=== PATIENT | male | born 1960 | race Hispanic/Latino ===

== ENCOUNTER 2017-11-12 17:09 | Emergency (ER) | payer MEDICAID, MEDICARE ==
[2017-11-12 17:09] VITALS: BMI 21.7
--- NOTE | 2017-11-12 18:02 | CP.PCM.CON ---
History of Present Illness - History of Present Illness History of Present Illness: Surgery: Dr. Welch Reason for consult: thrombosed hemorrhoids CC: "cant reduce hemorrhoids" HPI: Patient is a 57 y/o male w/ pmhx of hemorrhoids presents complaining of nonreducible hemorrhoids since this am. He reports 2 episodes of diarrhea prior to prolapse. He complains of pain and pressure to the rectal area. He denies any other symptoms at this time. He reports his last colonoscopy was 2 years ago which showed hemorrhoids but otherwise normal. PMH: hemorrhoids, lung fungal mass stable PSH: chest tube placement, lung mass biopsy, hydrocelectomy as infant, elder of thrombosed hemorrhoids Social: + tobacco use Review of Systems - Review of Systems All systems: reviewed and no additional remarkable complaints except Review of Systems: unless stated in HPI Past Patient History - Past Medical History & Family History Past Medical History?: Yes - Past Social History Smoking Status: Current Some Days Smoker - PULMONARY Other/Comment: PNUEMOTHORAX WITH CHEST TUBE 1993 fungal mass lung stable [id number] - NEUROLOGICAL Hx Neurological Disorder: No - HEENT Hx HEENT Problems: Yes (seasonal allergies) - RENAL Hx Chronic Kidney Disease: No - ENDOCRINE/METABOLIC Hx Endocrine Disorders: No - HEMATOLOGICAL/ONCOLOGICAL Hx Blood Disorders: No - INTEGUMENTARY Hx Dermatological Problems: No - MUSCULOSKELETAL/RHEUMATOLOGICAL Hx Musculoskeletal Disorders: Yes Hx Osteoarthritis: Yes - GASTROINTESTINAL Hx Gastrointestinal Disorders: Yes Hx Gastroesophageal Reflux: Yes - GENITOURINARY/GYNECOLOGICAL Hx Genitourinary Disorders: Yes Other/Comment: Inguinal Hernia, Testicular Problem - PSYCHIATRIC Hx Psychophysiologic Disorder: No Hx Substance Use: No - SURGICAL HISTORY Hx Surgeries: Yes Hx Herniorrhaphy: Yes (bilat ing 3 days old) Other/Comment: lung bx x 2 varicocelectomy x2. Hemorrhoid removal - ANESTHESIA Hx Anesthesia: Yes Hx Anesthesia Reactions: No Hx Malignant Hyperthermia: No Meds Allergies/Adverse Reactions: Allergies Allergy/AdvReac Type Severity Reaction Status Date / Time No Known Allergies Allergy Verified 11/12/17 17:11 Physical Exam - Constitutional Appears: Non-toxic, No Acute Distress - Head Exam Head Exam: ATRAUMATIC, NORMOCEPHALIC - Eye Exam Eye Exam: EOMI, Normal appearance - ENT Exam ENT Exam: Mucous Membranes Moist - Respiratory Exam Respiratory Exam: NORMAL BREATHING PATTERN. absent: Respiratory Distress - Cardiovascular Exam Cardiovascular Exam: REGULAR RHYTHM. absent: Tachycardia - GI/Abdominal Exam GI & Abdominal Exam: Soft. absent: Distended, Tenderness - Rectal Exam Rectal Exam: Hemorrhoids. absent: Black Stool, Bloody Stool, Fecal Impaction Additional comments: grade 4 hemorrhoids, soft minimal continuous pressure applied and after 30-45 seconds hemorrhoids reduced sphincter tone intact - Neurological Exam Neurological exam: Alert, Oriented x3 - Psychiatric Exam Psychiatric exam: Normal Affect, Normal Mood - Skin Skin Exam: Dry, Warm Results - Vital Signs Recent Vital Signs: Last Vital Signs Temp 98.2 F 11/12/17 17:12 Pulse 100 H 11/12/17 17:12 Resp 18 11/12/17 17:12 BP 124/78 11/12/17 17:12 Pulse Ox 100 11/12/17 17:12 Assessment & Plan - Assessment and Plan (Free Text) Assessment: 57 y/o male w/ grade 4 hemorrhoids Plan: -reduced with manual continuous pressure -needs surgical f/u as outpatient -Call Dr. Welch office for appointment, may need hemorrhoidectomy in future -recommending hemorrhoid suppositories OTC -Sitz baths daily -Fiber diet, prevent diarrhea and constipation -d/w ER attending and Dr. Welch [facility] PGY3
--- NOTE | 2017-11-12 18:12 | C.PDOC ---
History Of Present Illness 57 year old male presents to the emergency department with complaints of rectal pain persisting for one day. Patient reports that hemorrhoids protruded after he had a soft bowel movement today, and that he was unable to manually reduce the hemorrhoids. Patient reports some bloody discharge from the area, but denies abdominal pain, nausea, and vomiting. Time Seen by Provider: 11/12/17 17:21 Chief Complaint (Nursing): Male Genitourinary History Per: Patient History/Exam Limitations: no limitations Onset/Duration Of Symptoms: Days (1) Current Symptoms Are (Timing): Still Present Quality Of Discomfort: "Pain" Associated Symptoms: Other (rectal pain and hemorrhoids). denies: Nausea, Vomiting, Diarrhea Past Medical History Reviewed: Historical Data, Nursing Documentation, Vital Signs Vital Signs: Last Vital Signs Temp 98 F 11/12/17 18:44 Pulse 86 11/12/17 18:44 Resp 16 11/12/17 18:44 BP 126/73 11/12/17 18:44 Pulse Ox 100 11/14/17 07:21 - Medical History PMH: COPD, Emphysema, HTN Denies: Chronic Kidney Disease Surgical History: Endoscopy - [facility] Procedures COLONOSCOPY (06/10/14) ESOPHAGOGASTRODUODENOSCOPY [EGD] W/CLOSED BIOPSY (09/02/14) Family History: States: No Known Family Hx - Social History Hx Alcohol Use: No Hx Substance Use: No - Immunization History Hx Tetanus Toxoid Vaccination: No Hx Influenza Vaccination: No Hx Pneumococcal Vaccination: No Review Of Systems Gastrointestinal: Positive for: Rectal Pain, Other (blood discharge from rectum) . Negative for: Nausea, Vomiting, Abdominal Pain, Diarrhea Physical Exam - Physical Exam Appears: Non-toxic, In Acute Distress, Other (lying prone due to pain) Skin: Warm, Dry, No Rash, Other (1cm x 3cm warm, tender mass to the right of the rectum. Two smaller masses located to medial to the bigger mass.) Head: Atraumatic, Normacephalic Eye(s): bilateral: Normal Inspection Nose: Normal Oral Mucosa: Moist Neck: Normal, Supple Chest: Symmetrical, No Tenderness Cardiovascular: Rhythm Regular, No Murmur Respiratory: Normal Breath Sounds, No Rales, No Rhonchi, No Wheezing Gastrointestinal/Abdominal: Normal Exam, Soft, No Tenderness Back: Normal Inspection Male Genital: Normal Inspection Extremity: Normal ROM Neurological/Psych: Oriented x3, Normal Speech, Normal Cognition ED Course And Treatment O2 Sat by Pulse Oximetry: 100 (RA) Pulse Ox Interpretation: Normal Progress Note: Plan: CMP. Lipase. CBC. PTT. Prothrombin Time. Toradol 30mg IVP. Urinalysis Medical Decision Making Medical Decision Making: pt with large tender ?thrombosed hemorrhoids; consult done by surgical services asst ; hemorrhoids reduced manually by resident and pt in greatly decreased pain, feels pressure. given toradol. feeling better. advised sitz bath, high fiber diet, f/u Dr Welch, no straining. no need for labwork at this time. Disposition Counseled Patient/Family Regarding: Diagnosis, Need For Followup, Rx Given - Disposition Referrals: Angel Welch MD [Staff Provider] - Disposition: HOME/ ROUTINE Disposition Time: 18:26 Condition: IMPROVED Additional Instructions: Please increase fiber in diet. Do sitz baths several times a day (warm water with epsom salts or baking soda). No straining with bowel movement. Follow up wiht Dr Welch, make soonest appointment. Return to ER for any worsening symptoms. Instructions: Hemorrhoids (DC) Forms: General Discharge Instructions, [facility] (Ukrainian) - Clinical Impression Clinical Impression: Hemorrhoids that prolapse with straining and require manual replacement back inside anal canal - PA / MAINTENANCE TEAM LEADER / Resident Statement / has reviewed & agrees with the documentation as recorded. - Scribe Statement The provider has reviewed the documentation as recorded by the Scribe All medical record entries made by the Scribe were at my direction and personally dictated by me. I have reviewed the chart and agree that the record accurately reflects my personal performance of the history, physical exam, medical decision making, and the department course for this patient. I have also personally directed, reviewed, and agree with the discharge instructions and disposition.
[2017-11-12 18:45] VITALS: BP 126/73; PULSE 86; RESP 16; TEMP 98
[2017-11-14 07:22] VITALS: O2SAT 100
== END 2017-11-12 18:45 | disposition home or self-care (01) ==
LOC: C.ER 17:09
DX: K64.8 Other hemorrhoids (principal)
CPT/HCPCS: 96374; 99284; J1885

== ENCOUNTER 2018-08-07 09:51 | Emergency (ER) | payer MEDICARE, OTHER ==
[2018-08-07 09:51] VITALS: BMI 21.7
[2018-08-07 09:57] VITALS: RESP 20
--- NOTE | 2018-08-07 10:25 | C.PDOC ---
History Of Present Illness The patient reports 2 day history of vomiting which is associated with melena which today became bright red vomiting. The patient reports history of similar symptoms in the past and was diagnosed with a bleeding ulcer over 10 years ago. Time Seen by Provider: 08/07/18 10:05 Chief Complaint (Nursing): GI Problem History Per: Patient History/Exam Limitations: no limitations Onset/Duration Of Symptoms: Days (2) Current Symptoms Are (Timing): Still Present Associated Symptoms: Vomiting Additional History Per: Patient Past Medical History Reviewed: Historical Data, Nursing Documentation, Vital Signs Vital Signs: Last Vital Signs Temp 98.3 F 08/07/18 09:57 Pulse 70 08/07/18 09:57 Resp 20 08/07/18 09:57 BP 114/66 08/07/18 09:57 Pulse Ox 98 08/07/18 09:57 - Medical History PMH: COPD, Emphysema, Hiatal Hernia, HTN Denies: Chronic Kidney Disease Surgical History: Endoscopy - [facility] Procedures COLONOSCOPY (06/10/14) ESOPHAGOGASTRODUODENOSCOPY [EGD] W/CLOSED BIOPSY (09/02/14) Family History: States: Unknown Family Hx - Social History Hx Alcohol Use: Yes Hx Substance Use: No - Immunization History Hx Tetanus Toxoid Vaccination: Yes Hx Influenza Vaccination: No Hx Pneumococcal Vaccination: No Review Of Systems Gastrointestinal: Positive for: Vomiting, Melena Physical Exam - Physical Exam Appears: Non-toxic, No Acute Distress Skin: Normal Color, Warm, Dry Head: Atraumatic, Normacephalic Eye(s): bilateral: Normal Inspection Oral Mucosa: Moist Neck: Supple Chest: Symmetrical, No Deformity, No Tenderness Cardiovascular: Rhythm Regular, No Murmur Respiratory: Normal Breath Sounds, No Rales, No Rhonchi, No Wheezing Gastrointestinal/Abdominal: Soft, Tenderness (mild to left upper quadrant, epig astric ), No Guarding, No Rebound Back: No CVA Tenderness Extremity: Normal ROM, Capillary Refill (less than 2 seconds ) Neurological/Psych: Oriented x3, Normal Speech, Normal Cognition ED Course And Treatment - Laboratory Results Result Diagrams: 08/07/18 10:37 08/07/18 10:37 O2 Sat by Pulse Oximetry: 98 (on RA ) Pulse Ox Interpretation: Normal - Other Rad CXR X-Ray: Viewed By Me, Read By Radiologist Interpretation: Chest x-ray single frontal view. HISTORY: Abdominal pain. Comparison: 01/26/2016. Findings: Biapical pleural thickening with upper lobe granulomatous changes. Mild venous congestion. Bilateral hilar prominence. Patchy increased markings at the lung bases. Mild nodular consolidation at the right costophrenic angle. Heart size within normal limits. Degenerative changes in the spine. Impression: Biapical pleural thickening with upper lobe granulomatous changes. Mild venous congestion. Bilateral hilar prominence. Patchy increased markings at the lung bases. Mild nodular consolidation at the right costophrenic angle. - CT Scan/US CT A/P Other Rad Studies (CT/US): Read By Radiologist, Radiology Report Reviewed CT/US Interpretation: Date of service: 08/07/2018. PROCEDURE: CT Abdomen and Pelvis with contrast. HISTORY: Epigastric abdominal pain, vomiting, GI bleeding. COMPARISON: None available. TECHNIQUE: Contrast dose: 100 mL Visipaque 320 IV. Radiation dose: Total exam DLP = 359.47 mGy-cm. This CT exam was performed using one or more of the following dose reduction techniques: Automated exposure control, adjustment of the mA and/or kV according to patient size, and/or use of iterative reconstruction technique. FINDINGS: LOWER THORAX: Bibasilar atelectasis. No visible pleural effusion or pneumothorax. LIVER: Hypoattenuation of the liver compatible with hepatic steatosis. G ALLBLADDER AND BILE DUCTS: Unremarkable. PANCREAS: Unremarkable. SPLEEN: Unremarkable. ADRENALS: Unremarkable. KIDNEYS AND URETERS: The kidneys enhance symmetrically. No hydronephrosis or obstructing calculus identified. VASCULATURE: No aortic aneurysm. Atherosclerotic calcifications of the aorta. BOWEL: Stomach is nondistended. Lack of oral contrast limits evaluation for bowel pathology. Bowel loops appear within normal limits of caliber without evidence of obstruction. APPENDIX: The appendix is not identified. No secondary signs of acute appendicitis appreciated. PERITONEUM: No significant free fluid. No definite free air. LYMPH NODES: No bulky adenopathy identified. BLADDER: Unremarkable. REPRODUCTIVE: Prostate gland appears borderline enlarged. BONES: Degenerative changes. OTHER FINDINGS: None. IMPRESSION: Diverticulosis without CT evidence of acute diverticulitis. Borderline enlarged prostate gland. Recommend correlation with PSA. Hypoattenuation of the liver compatible with hepatic steatosis. Bibasilar atelectasis. Additional findings as above. Against Medical Advice - AMA Patient Left Against Medical Advice: The patient declines admission to the hospital and wishes to leave the Emergency Department. This action is against my medical advice. This decision was made with informed refusal. The patient was told that admission to the hospital is necessary. Explanation of the reasons why were discussed. The risks of leaving were explained to the patient and include, but are not limited to, worsening of known or currently unknown conditions, permanent disability and from undiagnosed or untreated conditions. The patient has the capacity to make this informed decision and understands my explanation of the current medical problem and risks of leaving. The patient voluntarily accepts these risks and signed an AMA form documenting our conversation. The patient was given the opportunity to ask questions and reconsider. The patient was encouraged to return to the Emergency Department at any time for further care. Medical Decision Making Medical Decision Making: Progress: Bloodwork, CT A/P, CXR ordered and reviewed. Protonix IVP, Zofran IVP, Sandostatin IV, and IV Fluids given. Patient with tenderness during abdominal ecam, CT A/P ordered. Patient with no episodes of vomiting in the ED with no evidence of bleeding. Patient was advised to be admitted for monitoring and GI bleeding. Patient re fuses at this time. I explained the risks and benefits of his decision to the patient. He verbalizes understanding and is choosing to leave the ED against medical advice. Disposition - Disposition Referrals: Stephan Araiza MD [Staff Provider] - Rojelio Taylor MD [Non-Staff] - Lawrence Taylor MD [Medical Doctor] - Maico Roque MD [Staff Provider] - Disposition: AGAINST MEDICAL ADVICE Disposition Time: 12:55 Condition: STABLE Additional Instructions: FOLLOW UP WITH THE GI DOCTOR WITHIN 1-2 DAYS. RETURN SOON POSSIBLE IF SYMPTOMS RETURN Prescriptions: Pantoprazole [Protonix EC Tab] 20 mg PO DAILY #30 ect Instructions: Gastrointestinal Bleeding (DC) Forms: [facility] ([place]ican) - Clinical Impression Clinical Impression: Abdominal pain, Upper GI bleeding - Scribe Statement The provider has reviewed the documentation as recorded by the Scribe (Nimco Aguila) All medical record entries made by the Scribe were at my direction and pe rsonally dictated by me. I have reviewed the chart and agree that the record accurately reflects my personal performance of the history, physical exam, medical decision making, and the department course for this patient. I have also personally directed, reviewed, and agree with the discharge instructions and disposition.
[2018-08-07] MEDS ORDERED: Sodium Chloride 0.9% 1,000 ML IV ONE (10:30)
[2018-08-07] MEDS ORDERED: Octreotide 500 mcg/ml Inj IV STA (10:35)
[2018-08-07 10:44] LABS: BASO % 0.6 % (0.0-2.0); EOS # 0.1 K/uL (0.0-0.7); EOS % 1.9 % (0.0-4.0); HEMOGLOBIN 15.3 g/dL (12.0-18.0); LYMPH # 1.3 K/uL (1.0-4.3); LYMPH % 24.4 % (20.0-40.0); MEAN CELL VOLUME 93.8 fL (80.0-94.0); MEAN CORPUSCULAR HEMOGLOBIN 31.3 pg (27.0-31.0); MEAN CORPUSCULAR HGB CONC 33.4 g/dL (33.0-37.0); MEAN PLATELET VOLUME 8.8 fL (7.2-11.7); MONO # 0.4 K/uL (0.0-0.8); MONO % 7.4 % (0.0-10.0); NEUT # 3.4 K/uL (1.8-7.0); NEUT % 65.7 % (50.0-75.0); RBC 4.9 Mil/uL (4.40-5.90); RED CELL DISTRIBUTION WIDTH 13.6 % (11.5-14.5); WHITE BLOOD COUNT 5.2 K/uL (4.8-10.8)
[2018-08-07] MEDS ORDERED: Sodium Chloride 0.9% 1,000 ML ONE (10:44)
[2018-08-07 10:55] LABS: PROTHROMBIN TIME 10.8 SECONDS (9.7-12.2)
[2018-08-07 11:00] LABS: ALB/GLOB RATIO 1.7 (1.0-2.1); ALBUMIN 4.7 g/dL (3.5-5.0); ALT/SGPT 18 U/L (21-72); AST/SGOT 34 U/L (17-59); BLOOD UREA NITROGEN 17 mg/dL (9-20); CALCIUM 9.4 mg/dl (8.6-10.4); GFR NON-AFRICAN AMERICAN > 60; LIPASE 83 U/L (23-300)
[2018-08-07] MEDS ORDERED: Iodixanol 320 MG/ML 100 ML BOTTLE IV ONE (11:24)
--- NOTE | 2018-08-07 11:51 | RAD ---
Chest x-ray single frontal view HISTORY: Abdominal pain. Comparison: 01/26/2016 Findings: Biapical pleural thickening with upper lobe granulomatous changes. Mild venous congestion. Bilateral hilar prominence. Patchy increased markings at the lung bases. Mild nodular consolidation at the right costophrenic angle. Heart size within normal limits. Degenerative changes in the spine. Impression: Biapical pleural thickening with upper lobe granulomatous changes. Mild venous congestion. Bilateral hilar prominence. Patchy increased markings at the lung bases. Mild nodular consolidation at the right costophrenic angle.
--- NOTE | 2018-08-07 12:40 | CT ---
Date of service: 08/07/2018 PROCEDURE: CT Abdomen and Pelvis with contrast HISTORY: Epigastric abdominal pain, vomiting, GI bleeding COMPARISON: None available. TECHNIQUE: Contrast dose: 100 mL Visipaque 320 IV Radiation dose: Total exam DLP = 359.47 mGy-cm. This CT exam was performed using one or more of the following dose reduction techniques: Automated exposure control, adjustment of the mA and/or kV according to patient size, and/or use of iterative reconstruction technique. FINDINGS: LOWER THORAX: Bibasilar atelectasis. No visible pleural effusion or pneumothorax. LIVER: Hypoattenuation of the liver compatible with hepatic steatosis. GALLBLADDER AND BILE DUCTS: Unremarkable. PANCREAS: Unremarkable. SPLEEN: Unremarkable. ADRENALS: Unremarkable. KIDNEYS AND URETERS: The kidneys enhance symmetrically. No hydronephrosis or obstructing calculus identified. VASCULATURE: No aortic aneurysm. Atherosclerotic calcifications of the aorta. BOWEL: Stomach is nondistended. Lack of oral contrast limits evaluation for bowel pathology. Bowel loops appear within normal limits of caliber without evidence of obstruction. APPENDIX: The appendix is not identified. No secondary signs of acute appendicitis appreciated. PERITONEUM: No significant free fluid. No definite free air. LYMPH NODES: No bulky adenopathy identified. BLADDER: Unremarkable. REPRODUCTIVE: Prostate gland appears borderline enlarged. BONES: Degenerative changes. OTHER FINDINGS: None. IMPRESSION: Diverticulosis without CT evidence of acute diverticulitis. Borderline enlarged prostate gland. Recommend correlation with PSA. Hypoattenuation of the liver compatible with hepatic steatosis. Bibasilar atelectasis. Additional findings as above.
[2018-08-07 12:41] VITALS: BP 128/65; PULSE 50; TEMP 97.8
[2018-08-07 12:57] VITALS: O2SAT 98
== END 2018-08-07 13:17 | disposition left against medical advice (07) ==
LOC: C.ER 09:51
DX: R10.13 Epigastric pain (principal); K92.2 Gastrointestinal hemorrhage, unspecified; I10 Essential (primary) hypertension
CPT/HCPCS: 71045; 74177; 80053; 83690; 85025; 85610; 85730; 96361; 96374; 96375; 99285; C9113; J2354; J2405; J7030; Q9967

== ENCOUNTER 2018-08-08 10:35 | Observation (INO) | payer MEDICARE, OTHER ==
[2018-08-08 10:35] VITALS: BMI 21.7
--- NOTE | 2018-08-08 11:21 | C.PDOC ---
History Of Present Illness 58 y/o M p/w hematemesis x 3 episodes this morning. Patient was in ED yesterday for same, had negative work up, was recommended admission, decided to leave AMA. Denies black or bloody stool, fever, dyspnea. Time Seen by Provider: 08/08/18 10:56 Chief Complaint (Nursing): GI Problem Past Medical History Vital Signs: Last Vital Signs Temp 97.7 F 08/08/18 10:48 Pulse 65 08/08/18 10:48 Resp 18 08/08/18 10:48 BP 123/72 08/08/18 10:48 Pulse Ox 97 08/08/18 10:48 - Medical History PMH: COPD, Emphysema, Hiatal Hernia, HTN Denies: Chronic Kidney Disease Surgical History: Endoscopy - [facility] Procedures COLONOSCOPY (06/10/14) ESOPHAGOGASTRODUODENOSCOPY [EGD] W/CLOSED BIOPSY (09/02/14) Family History: States: Unknown Family Hx - Social History Hx Alcohol Use: Yes Hx Substance Use: No - Immunization History Hx Tetanus Toxoid Vaccination: Yes Hx Influenza Vaccination: No Hx Pneumococcal Vaccination: No Review Of Systems Except As Marked, All Systems Reviewed And Found Negative. Constitutional: Negative for: Fever Cardiovascular: Negative for: Chest Pain Physical Exam - Physical Exam Additional Physical Exam Comments: Constitutional: No acute distress. Head: Normocephalic. Atraumatic. Eyes: PERRL. ENT: Moist mucous membranes. Neck: Supple. Cardiovascular: Regular rate. Radial pulse 2+ bilaterally. Chest: No tenderness. Respiratory: Clear to auscultation bilaterally. GI: Soft. Nontender. Nondistended. Back: No CVA tenderness. Musculoskeletal: No tenderness or swelling of extremities. Skin: No rash. Neurologic: Alert, no focal deficit. ED Course And Treatment O2 Sat by Pulse Oximetry: 97 Disposition Discussed With : Sudarshan Smith Doctor Will See Patient In The: Hospital - Disposition Disposition: HOSPITALIZED Disposition Time: 12:03 Condition: STABLE Forms: [facility] (Thai) - Clinical Impression Clinical Impression: GI bleed
[2018-08-08 12:23] LABS: BASO # 0.1 K/uL (0.0-0.2); BASO % 0.7 % (0.0-2.0); EOS # 0.1 K/uL (0.0-0.7); EOS % 1.6 % (0.0-4.0); HEMOGLOBIN 14.9 g/dL (12.0-18.0); LYMPH # 1.4 K/uL (1.0-4.3); MEAN CELL VOLUME 93.3 fL (80.0-94.0); MEAN CORPUSCULAR HEMOGLOBIN 31.5 pg (27.0-31.0); MEAN CORPUSCULAR HGB CONC 33.7 g/dL (33.0-37.0); MEAN PLATELET VOLUME 9.3 fL (7.2-11.7); MONO # 0.4 K/uL (0.0-0.8); MONO % 6.4 % (0.0-10.0); NEUT # 4.9 K/uL (1.8-7.0); NEUT % 71.3 % (50.0-75.0); RBC 4.73 Mil/uL (4.40-5.90); RED CELL DISTRIBUTION WIDTH 13.9 % (11.5-14.5); WHITE BLOOD COUNT 6.9 K/uL (4.8-10.8)
[2018-08-08 12:39] LABS: ALB/GLOB RATIO 1.7 (1.0-2.1); ALBUMIN 4.4 g/dL (3.5-5.0); ALT/SGPT 25 U/L (21-72); AST/SGOT 34 U/L (17-59); BLOOD UREA NITROGEN 16 mg/dL (9-20); CALCIUM 9.3 mg/dl (8.6-10.4); GFR NON-AFRICAN AMERICAN > 60
--- NOTE | 2018-08-08 13:48 | CP.PCM.HP ---
<Jamil Yanes - Last Filed: 08/08/18 15:58> History of Present Illness - History of Present Illness History of Present Illness: History and Physical for Hospitalist service HPI: Patient is a 58 year old male with history of COPD, HTN, hiatal hernia who presents for 3 day history of bloody vomiting associated with right to mid abdominal pain. He states he woke up on Tuesday morning, felt nauseated and began to vomiting blood. He states he had 4 episodes of bloody vomiting in the morning. He then developed bloody vomiting x5 yesterday morning described as dark red bloody material, after which he sought medical attention and came in to the ED. He states he left against medical advice because he was not ready to stay. He states he woke up again this morning with 3 to 4 episodes of bloody vomiting associated with right to mid abdominal pain. He describes his pain as constant pain that feels like heartburn. He last ate soup at 7pm yesterday. He admits to using Ibuprofen for his chronic back pain, but stopped about 1 month ago. Last drank alcohol 4 days ago, drank 2 beers at that time. He states he has had a similar episode when he was 17 years old, after which he took Mylanta. He admits to feeling some chills, slight headache, lig htheadedness. He also admits to having difficulty extending his left 3rd digit. He denies chest pain, shortness of breath, palpitations. He denies urinary symptoms, leg pain. PMH: COPD, hiatal hernia, HTN PSH: hernia repair, EGD, colonoscopy Social hx: smokes 1/2 ppd since age 9, (+) drink alcohol 3-4 beers weekly, (+) prior history of drug use, including cocaine, marijuana, none currently. Works in construction currently Family hx: Father diagnosed with colon cancer in his 60s, sister diagnosed with colon cancer at age 51. Sister has breast cancer. Mother of breast cancer Home meds: Norvasc 5mg, Omeprazole 20mg Allergies: coconut -> hives PMD: Dr. Jiménez GI: Lawrence Escudero POA: Sister Louise Full code Present on Admission - Present on Admission Any Indicators Present on Admission: No Review of Systems - Constitutional Constitutional: Chills, Headache. absent: Fever - EENT Eyes: absent: Change in Vision Ears: absent: Decreased Hearing Nose/Mouth/Throat: absent: Sore Throat - Cardiovascular Cardiovascular: absent: Chest Pain, Dyspnea, Palpitations - Respiratory Respiratory: absent: Cough, Dyspnea - Gastrointestinal Gastrointestinal: Abdominal Pain, Diarrhea, Hematemesis, Melena, Vomiting - Genitourinary Genitourinary: absent: Difficulty Urinating, Dysuria, Urinary Incontinence - Musculoskeletal Musculoskeletal: Back Pain - Neurological Neurological: Dizziness, Headaches - Psychiatric Psychiatric: absent: Anxiety, Depression - Endocrine Endocrine: absent: Fatigue Past Patient History - Past Medical History & Family History Past Medical History?: Yes - Past Social History Smoking Status: Heavy Smoker > 10 Cigarettes Daily - CARDIAC Hx Hypertension: Yes - PULMONARY Hx Chronic Obstructive Pulmonary Disease (COPD): Yes Hx Emphysema: Yes - NEUROLOGICAL Hx Neurological Disorder: No - HEENT Hx HEENT Problems: Yes (seasonal allergies) - RENAL Hx Chronic Kidney Disease: No - ENDOCRINE/METABOLIC Hx Endocrine Disorders: No - HEMATOLOGICAL/ONCOLOGICAL Hx Blood Disorders: No - INTEGUMENTARY Hx Dermatological Problems: No - MUSCULOSKELETAL/RHEUMATOLOGICAL Hx Musculoskeletal Disorders: Yes Hx Osteoarthritis: Yes - GASTROINTESTINAL Hx Gastrointestinal Disorders: Yes Hx Gastroesophageal Reflux: Yes - GENITOURINARY/GYNECOLOGICAL Hx Genitourinary Disorders: Yes Other/Comment: Inguinal Hernia, Testicular Problem - PSYCHIATRIC Hx Substance Use: No - SURGICAL HISTORY Hx Surgeries: Yes Hx Herniorrhaphy: Yes - ANESTHESIA Hx Anesthesia: Yes Hx Anesthesia Reactions: No Hx Malignant Hyperthermia: No Meds Allergies/Adverse Reactions: Allergies Allergy/AdvReac Type Severity Reaction Status Date / Time No Known Allergies Allergy Verified 11/12/17 17:11 Physical Exam - Constitutional Appears: Well, No Acute Distress - Head Exam Head Exam: ATRAUMATIC, NORMOCEPHALIC - Eye Exam Eye Exam: EOMI, PERRL - ENT Exam ENT Exam: Mucous Membranes Moist - Neck Exam Neck exam: Positive for: Full Rom. Negative for: Tenderness - Respiratory Exam Respiratory Exam: Clear to Auscultation Bilateral. absent: Rales, Rhonchi, Wheezes, Respiratory Distress - Cardiovascular Exam Cardiovascular Exam: REGULAR RHYTHM, +S1, +S2. absent: Gallop, Rubs, Systolic Murmur - GI/Abdominal Exam GI & Abdominal Exam: Normal Bowel Sounds, Soft, Tenderness (Right to mid abdomen, left upper and lower quadrants nontender ). absent: Diminished Bowel Sounds, Distended, Firm, Guarding, Rebound, Rigid - Extremities Exam Extremities exam: Positive for: pedal pulses present. Negative for: calf tenderness, pedal edema - Back Exam Back exam: absent: CVA tenderness (L), CVA tenderness (R), rash noted - Neurological Exam Neurological exam: Alert, CN II-XII Intact, Oriented x3 - Psychiatric Exam Psychiatric exam: Normal Affect, Normal Mood - Skin Skin Exam: Dry, Intact, Warm Results - Vital Signs Recent Vital Signs: Last Vital Signs Temp 98 F 08/08/18 12:28 Pulse 83 08/08/18 12:28 Resp 20 08/08/18 12:28 BP 130/66 08/08/18 12:28 Pulse Ox 96 08/08/18 12:28 - Labs Result Diagrams: 08/08/18 12:14 08/08/18 12:14 Labs: Laboratory Results - last 24 hr 08/08/18 08/08/18 12:14 12:14 WBC 6.9 RBC 4.73 Hgb 14.9 Hct 44.1 MCV 93.3 MCH 31.5 H MCHC 33.7 RDW 13.9 Plt Count 210 MPV 9.3 Neut % (Auto) 71.3 Lymph % (Auto) 20.0 [place] % (Auto) 6.4 Eos % (Auto) 1.6 Baso % (Auto) 0.7 Neut # (Auto) 4.9 Lymph # (Auto) 1.4 [place] # (Auto) 0.4 Eos # (Auto) 0.1 Baso # (Auto) 0.1 Sodium 138 Potassium 4.2 Chloride 103 Carbon Dioxide 27 Anion Gap 11 BUN 16 Creatinine 0.8 Est GFR ( Amer) > 60 Est GFR (Non-Af Amer) > 60 Random Glucose 90 Calcium 9.3 Phosphorus 2.6 Magnesium 2.0 Total Bilirubin 0.5 AST 34 ALT 25 Alkaline Phosphatase 52 Total Protein 7.0 Albumin 4.4 Globulin 2.5 Albumin/Globulin Ratio 1.7 Assessment & Plan - Assessment and Plan (Free Text) Assessment: 58 year old male with history of COPD, hiatal hernia, hypertension who presents for hematemesis and abdominal pain. Plan: Hematemesis Hb 14.9 Hct 44.1 Type and screen ordered Repeat CBC in AM GI Dr. Larson consulted, help appreciated NPO NS IV fluids @ 100cc/hr IV Protonix 40mg IVP BID Stool occult History of COPD Currently oxygenating well on RA Continue to monitor History of hypertension Hold Norvasc currently Continue to monitor Prophylaxis: DVT: anticoagulation contraindicated given bleeding Protonix 40mg IV BID Case discussed with Dr. Cash Yanes, PGY1 <Bipin Castrejon - Last Filed: 08/08/18 16:34> Results - Vital Signs Recent Vital Signs: Last Vital Signs Temp 97.7 F 08/08/18 15:00 Pulse 50 L 08/08/18 15:00 Resp 20 08/08/18 15:00 BP 129/74 08/08/18 15:00 Pulse Ox 96 08/08/18 15:00 - Labs Result Diagrams: 08/08/18 12:14 08/08/18 12:14 Labs: Laboratory Results - last 24 hr 08/08/18 08/08/18 12:14 12:14 WBC 6.9 RBC 4.73 Hgb 14.9 Hct 44.1 MCV 93.3 MCH 31.5 H MCHC 33.7 RDW 13.9 Plt Count 210 MPV 9.3 Neut % (Auto) 71.3 Lymph % (Auto) 20.0 [place] % (Auto) 6.4 Eos % (Auto) 1.6 Baso % (Auto) 0.7 Neut # (Auto) 4.9 Lymph # (Auto) 1.4 [place] # (Auto) 0.4 Eos # (Auto) 0.1 Baso # (Auto) 0.1 Sodium 138 Potassium 4.2 Chloride 103 Carbon Dioxide 27 Anion Gap 11 BUN 16 Creatinine 0.8 Est GFR ( Amer) > 60 Est GFR (Non-Af Amer) > 60 Random Glucose 90 Calcium 9.3 Phosphorus 2.6 Magnesium 2.0 Total Bilirubin 0.5 AST 34 ALT 25 Alkaline Phosphatase 52 Total Protein 7.0 Albumin 4.4 Globulin 2.5 Albumin/Globulin Ratio 1.7 Attending/Attestation - Attestation I have personally seen and examined this patient.: Yes I have fully participated in the care of the patient.: Yes I have reviewed all pertinent clinical information: Yes Notes (Text): Patient seen and examined with the residents, agree with above No acute distress, Hemodynamically stable Symptoms with multiple episodes of hematemesis (bright red and then "pink"), no associated abdominal pain Occasional etoh with last drink one day prior to the start of symptoms. History of gastritis provided by patient H&H stable, monitor with regular cbc, GI consultation - will keep NPO for possible EGD. IVF and supportive care, Protonix.
[2018-08-08] MEDS: Sodium Chloride 0.9% 1,000 ML IV SCH (14:48)
--- NOTE | 2018-08-08 15:29 | CP.PCM.CON ---
<Ky Luis - Last Filed: 08/09/18 09:55> History of Present Illness - History of Present Illness History of Present Illness: PGY6 GI Fellow Consult Note Patient is a 58yo male with PMHx significant for COPD, HTN, GERD and hiatal hernia who presented to the hospital with complaint of nausea/vomiting. States that Tuesday morning he awoke feeling nauseated and vomited dark brown emesis. With subsequent episodes of emesis on Tuesday, he noted a pink tinge in the emesis. Tuesday morning he had identical symptoms and presented to the ED after a particularly violent episode of nausea/vomiting in which he believed he noted specs of red blood with his emesis. Patient was offered admission but signed AMA and returned home. Again today he experienced nausea and vomiting and returned to the ED. Throughout these episodes and over the last several months he has noted worsening postprandial heartburn despite daily PPI use (omeprazole 20mg PO QAM). Admits to using Ibuprofen 800mg PRN (~3-4 times weekly) for several months prior to admission but ceased use approximately one month ago. Patient does drink EtOH 3-4 times weekly and smokes daily. Admits to ~10lb weight loss over last month with poor appetite. Denies any new Rx/OTC medications, herbal supplements or vitamins. No weight loss, fever, chills, hematochezia, melena, constipation, diarrhea. No sick contacts or recent travel. 12 system ROS performed and negative except where stated PMHx: See HPI PSHx: Denies prior surgical procedures FHx: Father - colon cancer (60s), sister - colon/breast cancer; sister - gastric cancer Social: +Tobacco use 1/2ppd x50 years, +EtOH use (3-4 drinks, 3-4 times per week), +marijuana use Endo: 06/02 - Colon - report unavailable for review but unremarkable per patient 09/01 - EGD - Large hiatal hernia, gastritis Past Patient History - Past Medical History & Family History Past Medical History?: Yes - Past Social History Smoking Status: Heavy Smoker > 10 Cigarettes Daily - CARDIAC Hx Hypertension: Yes - PULMONARY Hx Chronic Obstructive Pulmonary Disease (COPD): Yes Hx Emphysema: Yes - NEUROLOGICAL Hx Neurological Disorder: No - HEENT Hx HEENT Problems: Yes (seasonal allergies) - RENAL Hx Chronic Kidney Disease: No - ENDOCRINE/METABOLIC Hx Endocrine Disorders: No - HEMATOLOGICAL/ONCOLOGICAL Hx Blood Disorders: No - INTEGUMENTARY Hx Dermatological Problems: No - MUSCULOSKELETAL/RHEUMATOLOGICAL Hx Musculoskeletal Disorders: Yes Hx Osteoarthritis: Yes - GASTROINTESTINAL Hx Gastrointestinal Disorders: Yes Hx Gastroesophageal Reflux: Yes - GENITOURINARY/GYNECOLOGICAL Hx Genitourinary Disorders: Yes Other/Comment: Inguinal Hernia, Testicular Problem - PSYCHIATRIC Hx Substance Use: No - SURGICAL HISTORY Hx Surgeries: Yes Hx Herniorrhaphy: Yes - ANESTHESIA Hx Anesthesia: Yes Hx Anesthesia Reactions: No Hx Malignant Hyperthermia: No Meds Allergies/Adverse Reactions: Allergies Allergy/AdvReac Type Severity Reaction Status Date / Time No Known Allergies Allergy Verified 11/12/17 17:11 - Medications Medications: Current Medications Sodium Chloride (Sodium Chloride 0.9%) 1,000 mls @ 100 mls/hr IV .Q10H [facility] Last Admin: 08/08/18 14:48 Dose: 100 mls/hr Pantoprazole Sodium (Protonix Inj) 40 mg IVP Q12H [facility] Physical Exam - Constitutional Appears: Non-toxic, No Acute Distress - Eye Exam Eye Exam: EOMI, PERRL - ENT Exam ENT Exam: Mucous Membranes Moist - Respiratory Exam Respiratory Exam: Clear to Auscultation Bilateral. absent: Rales, Rhonchi, Wheezes - Cardiovascular Exam Cardiovascular Exam: RRR, +S1, +S2 - GI/Abdominal Exam GI & Abdominal Exam: Normal Bowel Sounds, Soft, Tenderness (minimal epigastric). absent: Distended, Firm, Guarding, Mass, Organomegaly, Rigid - Extremities Exam Extremities exam: Positive for: normal inspection. Negative for: pedal edema - Neurological Exam Neurological exam: Alert, Oriented x3 - Psychiatric Exam Psychiatric exam: Normal Affect, Normal Mood - Skin Skin Exam: Dry, Warm Results - Vital Signs Recent Vital Signs: Last Vital Signs Temp 97.0 F L 08/08/18 13:00 Pulse 58 L 08/08/18 13:00 Resp 20 08/08/18 13:00 BP 122/63 08/08/18 13:00 Pulse Ox 95 08/08/18 13:00 - Labs Result Diagrams: 08/09/18 07:16 08/09/18 07:16 Labs: Laboratory Results - last 24 hr 08/08/18 08/08/18 12:14 12:14 WBC 6.9 RBC 4.73 Hgb 14.9 Hct 44.1 MCV 93.3 MCH 31.5 H MCHC 33.7 RDW 13.9 Plt Count 210 MPV 9.3 Neut % (Auto) 71.3 Lymph % (Auto) 20.0 [place] % (Auto) 6.4 Eos % (Auto) 1.6 Baso % (Auto) 0.7 Neut # (Auto) 4.9 Lymph # (Auto) 1.4 [place] # (Auto) 0.4 Eos # (Auto) 0.1 Baso # (Auto) 0.1 Sodium 138 Potassium 4.2 Chloride 103 Carbon Dioxide 27 Anion Gap 11 BUN 16 Creatinine 0.8 Est GFR ( Amer) > 60 Est GFR (Non-Af Amer) > 60 Random Glucose 90 Calcium 9.3 Phosphorus 2.6 Magnesium 2.0 Total Bilirubin 0.5 AST 34 ALT 25 Alkaline Phosphatase 52 Total Protein 7.0 Albumin 4.4 Globulin 2.5 Albumin/Globulin Ratio 1.7 Assessment & Plan - Assessment and Plan (Free Text) Assessment: Patient is a 58yo male with PMHx significant for COPD, HTN, GERD and hiatal hernia who presented to the hospital with complaint of nausea/vomiting -Nausea/vomiting with subjective hematemesis -Heartburn despite PPI therapy -Unintentional weight loss Plan: -Liquid diet as tolerated tonight, NPO past midnight -Pantoprazole 40mg IV BID -IVF as ordered -Antiemetics PRN per primary service -Plan for EGD tomorrow given unintentional weight loss, subjective hematemesis and significant family history - Date & Time Date: 08/08/18 <Kingston Larson - Last Filed: 08/09/18 10:10> Meds - Medications Medications: Current Medications Sodium Chloride (Sodium Chloride 0.9%) 1,000 mls @ 100 mls/hr IV .Q10H [facility] Last Admin: 08/09/18 05:47 Dose: 100 mls/hr Nicotine (Nicoderm Cq) 1 patch TD DAILY [facility] Last Admin: 08/09/18 09:44 Dose: 1 patch Ondansetron HCl (Zofran Inj) 4 mg IVP Q6H PRN PRN Reason: Nausea/Vomiting Last Admin: 08/09/18 08:22 Dose: 4 mg Pantoprazole Sodium (Protonix Inj) 40 mg IVP Q12H [facility] Last Admin: 08/09/18 09:47 Dose: 40 mg Results - Vital Signs Recent Vital Signs: Last Vital Signs Temp 97.9 F 08/08/18 23:15 Pulse 50 L 08/08/18 23:15 Resp 20 08/08/18 23:15 BP 124/62 08/08/18 23:15 Pulse Ox 95 08/08/18 23:15 - Labs Result Diagrams: 08/09/18 07:16 08/09/18 07:16 Labs: Laboratory Results - last 24 hr 08/08/18 08/08/18 08/08/18 12:14 12:14 16:43 WBC 6.9 RBC 4.73 Hgb 14.9 Hct 44.1 MCV 93.3 MCH 31.5 H MCHC 33.7 RDW 13.9 Plt Count 210 MPV 9.3 Neut % (Auto) 71.3 Lymph % (Auto) 20.0 [place] % (Auto) 6.4 Eos % (Auto) 1.6 Baso % (Auto) 0.7 Neut # (Auto) 4.9 Lymph # (Auto) 1.4 [place] # (Auto) 0.4 Eos # (Auto) 0.1 Baso # (Auto) 0.1 Sodium 138 Potassium 4.2 Chloride 103 Carbon Dioxide 27 Anion Gap 11 BUN 16 Creatinine 0.8 Est GFR ( Amer) > 60 Est GFR (Non-Af Amer) > 60 POC Glucose (mg/dL) Random Glucose 90 Calcium 9.3 Phosphorus 2.6 Magnesium 2.0 Total Bilirubin 0.5 AST 34 ALT 25 Alkaline Phosphatase 52 Total Protein 7.0 Albumin 4.4 Globulin 2.5 Albumin/Globulin Ratio 1.7 Blood Type A POSITIVE Antibody Screen Negative 08/09/18 08/09/18 08/09/18 06:52 07:16 07:16 WBC 4.0 L RBC 4.62 Hgb 14.4 Hct 43.1 MCV 93.3 MCH 31.1 H MCHC 33.3 RDW 13.3 Plt Count 180 MPV 9.0 Neut % (Auto) 63.8 Lymph % (Auto) 24.4 [place] % (Auto) 7.4 Eos % (Auto) 3.3 Baso % (Auto) 1.1 Neut # (Auto) 2.5 Lymph # (Auto) 1.0 [place] # (Auto) 0.3 Eos # (Auto) 0.1 Baso # (Auto) 0.0 Sodium 137 Potassium 3.9 Chloride 104 Carbon Dioxide 27 Anion Gap 9 L BUN 11 Creatinine 0.8 Est GFR ( Amer) > 60 Est GFR (Non-Af Amer) > 60 POC Glucose (mg/dL) 92 Random Glucose 98 Calcium 9.0 Phosphorus 3.1 Magnesium 2.0 Total Bilirubin 0.7 AST 23 ALT 30 Alkaline Phosphatase 50 Total Protein 6.2 L Albumin 3.8 Globulin 2.3 Albumin/Globulin Ratio 1.6 Blood Type Antibody Screen Attending/Attestation - Attestation I have personally seen and examined this patient.: Yes I have fully participated in the care of the patient.: Yes I have reviewed all pertinent clinical information: Yes Notes (Text): 08/09/18 10:08 Patient reports blood tinged emesis in conjuction with high dose Ibuprofen use. No gross melena or overt bleeding. Prior EGD report reviewed. Will plan for EGD in am. Will need colonoscopy as outpatient due to strong family h/o colon cancer and prior exam 2013 at [facility].
[2018-08-09] MEDS: Sodium Chloride 0.9% 1,000 ML IV SCH ×3 (00:50→10:17)
--- NOTE | 2018-08-09 07:12 | CP.PCM.PN ---
<Jamil Yanes - Last Filed: 08/09/18 17:02> Subjective - Date & Time of Evaluation Date of Evaluation: 08/09/18 Time of Evaluation: 07:12 - Subjective Subjective: Progress Note for Hospitalist service Patient seen and examined at bedside. He states he has not had any bloody vomiting since his admission here yesterday. He states he experienced some nausea this morning, but did not vomiting. He states his abdominal pain has significantly improved from before. He denies diarrhea. He denies fevers, chills, dizziness, chest pain, shortness of breath, urinary discomfort or frequency, leg pain. He is scheduled for EGD later today. Objective - Vital Signs/Intake and Output Vital Signs (last 24 hours): Temp Pulse Resp BP Pulse Ox 97.9 F 50 L 20 124/62 95 08/08/18 23:15 08/08/18 23:15 08/08/18 23:15 08/08/18 23:15 08/08/18 23:15 - Medications Medications: Current Medications Sodium Chloride (Sodium Chloride 0.9%) 1,000 mls @ 100 mls/hr IV .Q10H [facility] Last Admin: 08/09/18 05:47 Dose: 100 mls/hr Ondansetron HCl (Zofran Inj) 4 mg IVP Q6H PRN PRN Reason: Nausea/Vomiting Pantoprazole Sodium (Protonix Inj) 40 mg IVP Q12H [facility] - Labs Labs: 08/08/18 12:14 08/08/18 12:14 - Constitutional Appears: Well, No Acute Distress - Head Exam Head Exam: ATRAUMATIC, NORMOCEPHALIC - Eye Exam Eye Exam: EOMI, PERRL - ENT Exam ENT Exam: Mucous Membranes Moist - Neck Exam Neck Exam: Full ROM. absent: Tenderness - Respiratory Exam Respiratory Exam: Clear to Ausculation Bilateral. absent: Decreased Breath Sounds, Rhonchi, Wheezes, Respiratory Distress, Stridor - Cardiovascular Exam Cardiovascular Exam: REGULAR RHYTHM, +S1, +S2. absent: Gallop, Rubs, Murmur - GI/Abdominal Exam GI & Abdominal Exam: Soft, Tenderness (Minimal tenderness of epigastric region), Normal Bowel Sounds. absent: Distended, Firm, Guarding, Rigid - Extremities Exam Extremities Exam: Normal Capillary Refill. absent: Calf Tenderness, Pedal Edema - Back Exam Back Exam: absent: CVA tenderness (L), CVA tenderness (R) - Neurological Exam Neurological Exam: Alert, Awake, Oriented x3 - Psychiatric Exam Psychiatric exam: Normal Affect, Normal Mood - Skin Skin Exam: Dry, Intact, Warm Assessment and Plan - Assessment and Plan (Free Text) Assessment: 58 year old male with history of COPD, hiatal hernia, hypertension who presents for hematemesis and abdominal pain. Plan: Hematemesis Hb 14.4 Hct 43.1 Type and screen ordered GI Dr. Larson consulted, help appreciated EGD today revealed 2 cm hiatal hernia, LA Grade A reflux esophagitis. Gastritis. Follow up path report Recommend no NSAIDs - no ASA, Ibuprofen, Naproxen for 4 days. Recommend Protonix 40mg PO BID x2 weeks. NS IV fluids @ 100cc/hr IV Protonix 40mg IVP BID Zofran 4mg IV Q6 PRN Stool occult f/u Clear liquid diet, advance as tolerated History of COPD Currently oxygenating well on RA Continue to monitor History of hypertension Hold [facility] currently Continue to monitor History of COPD Patient not currently on any medications for COPD Patient will need to follow up in clinic outpatient for PFTs. Tobacco use disorder Nicotine patch Patient to be given information for [place] Quitline upon discharge. History of back pain Used to take Ibuprofen for pain as per patient May take Tylenol for pain as needed Prophylaxis: DVT: anticoagulation contraindicated given bleeding Protonix 40mg IV BID Clear liquid diet, advance as tolerated Case discussed with Dr. Braeden Yanes, PGY1 <Braeden Aguila - Last Filed: 08/09/18 19:14> Objective - Vital Signs/Intake and Output Vital Signs (last 24 hours): Temp Pulse Resp BP Pulse Ox 97.9 F 66 20 126/70 97 08/09/18 15:00 08/09/18 16:10 08/09/18 15:00 08/09/18 15:00 08/09/18 16:10 Intake and Output: 08/09/18 08/10/18 18:59 06:59 Intake Total 750 Balance 750 - Labs Labs: 08/09/18 07:16 08/09/18 07:16 PT 11.3 SECONDS (9.7-12.2) 08/09/18 11:38 INR 1.0 08/09/18 11:38 Attending/Attestation - Attestation I have personally seen and examined this patient.: Yes I have fully participated in the care of the patient.: Yes I have reviewed all pertinent clinical information, including history, physical exam and plan: Yes Notes (Text): 08/09/18 19:14 Patient was seen and examined at 8:45 AM Care of this patient was gone over with resident Dr. Yanes. Braeden Aguila D.O.
[2018-08-09 07:57] LABS: ALB/GLOB RATIO 1.6 (1.0-2.1); ALBUMIN 3.8 g/dL (3.5-5.0); ALT/SGPT 30 U/L (21-72); AST/SGOT 23 U/L (17-59); BLOOD UREA NITROGEN 11 mg/dL (9-20); GFR NON-AFRICAN AMERICAN > 60
[2018-08-09 07:58] LABS: BASO % 1.1 % (0.0-2.0); EOS # 0.1 K/uL (0.0-0.7); EOS % 3.3 % (0.0-4.0); HEMOGLOBIN 14.4 g/dL (12.0-18.0); LYMPH % 24.4 % (20.0-40.0); MEAN CELL VOLUME 93.3 fL (80.0-94.0); MEAN CORPUSCULAR HEMOGLOBIN 31.1 pg (27.0-31.0); MEAN CORPUSCULAR HGB CONC 33.3 g/dL (33.0-37.0); MONO # 0.3 K/uL (0.0-0.8); MONO % 7.4 % (0.0-10.0); NEUT # 2.5 K/uL (1.8-7.0); NEUT % 63.8 % (50.0-75.0); NRBC % 0.2 % (0.0-2.0); RBC 4.62 Mil/uL (4.40-5.90); RED CELL DISTRIBUTION WIDTH 13.3 % (11.5-14.5)
[2018-08-09 11:54] LABS: PROTHROMBIN TIME 11.3 SECONDS (9.7-12.2)
[2018-08-09] MEDS ORDERED: Lactated Ringer's 1,000 ML IV ONE (12:05)
--- NOTE | 2018-08-09 12:38 | CP.PCM.PN ---
Subjective - Date & Time of Evaluation Date of Evaluation: 08/09/18 Time of Evaluation: 12:36 - Subjective Subjective: EGD: See full OR report Erosive gastritis Reflux esophagitis grade 1 2cm hiatal hernia No active bleeding Rec/ Protonix bid advance diet Outpatient follow up with me or medical clinic in 2 weeks. Objective - Vital Signs/Intake and Output Vital Signs (last 24 hours): Temp Pulse Resp BP Pulse Ox 97.8 F 48 L 20 121/71 96 08/09/18 12:05 08/09/18 12:05 08/09/18 12:05 08/09/18 12:05 08/09/18 12:05 - Medications Medications: Current Medications Sodium Chloride (Sodium Chloride 0.9%) 1,000 mls @ 100 mls/hr IV .Q10H [facility] Last Admin: 08/09/18 10:17 Dose: Not Given Lactated Ringer's (Lactated Ringer's 500ml) 500 mls @ 75 mls/hr IV .Q6H40M [facility] Influenza Virus Vaccine (Flucelvax Quad 1275-1350 Syr) 60 mcg IM .ONCE ONE Stop: 08/10/18 10:01 Nicotine (Nicoderm Cq) 1 patch TD DAILY [facility] Last Admin: 08/09/18 09:44 Dose: 1 patch Ondansetron HCl (Zofran Inj) 4 mg IVP Q6H PRN PRN Reason: Nausea/Vomiting Last Admin: 08/09/18 08:22 Dose: 4 mg Pantoprazole Sodium (Protonix Inj) 40 mg IVP Q12H [facility] Last Admin: 08/09/18 09:47 Dose: 40 mg - Labs Labs: 08/09/18 07:16 08/09/18 07:16 PT 11.3 SECONDS (9.7-12.2) 08/09/18 11:38 INR 1.0 08/09/18 11:38
[2018-08-09] MEDS ORDERED: Lactated Ringer's 500 ML IV SCH (12:45)
[2018-08-09] MEDS ORDERED: Pantoprazole 40 mg EC Tab PO SCH (12:45)
[2018-08-09 15:30] VITALS: BP 126/70; RESP 20; TEMP 97.9; O2SAT 97
[2018-08-09] MEDS ORDERED: Influenza Vaccine 60 mcg/0.5 mL SYR (4YR UP) IM ONE (17:00)
[2018-08-09 17:02] VITALS: PULSE 66
--- NOTE | 2018-08-09 17:02 | CP.PCM.DIS ---
<Jamil Yanes - Last Filed: 08/09/18 17:03> Provider - Provider Date of Admission: 08/08/18 12:00 Attending physician: Sudarshan Smith MD Consults: 08/08/18 14:08 Physician Consult Routine Comment: Consulting Provider: Kingston Larson Consulting Physician: Kingston Larson Reason for Consult: hematemesis Time Spent in preparation of Discharge (in minutes): 40 Hospital Course - Lab Results Lab Results: Most Recent Lab Values WBC 4.0 K/uL (4.8-10.8) L 08/09/18 07:16 RBC 4.62 Mil/uL (4.40-5.90) 08/09/18 07:16 Hgb 14.4 g/dL (12.0-18.0) 08/09/18 07:16 Hct 43.1 % (35.0-51.0) 08/09/18 07:16 MCV 93.3 fL (80.0-94.0) 08/09/18 07:16 MCH 31.1 pg (27.0-31.0) H 08/09/18 07:16 MCHC 33.3 g/dL (33.0-37.0) 08/09/18 07:16 RDW 13.3 % (11.5-14.5) 08/09/18 07:16 Plt Count 180 K/uL (130-400) 08/09/18 07:16 MPV 9.0 fL (7.2-11.7) 08/09/18 07:16 Neut % (Auto) 63.8 % (50.0-75.0) 08/09/18 07:16 Lymph % (Auto) 24.4 % (20.0-40.0) 08/09/18 07:16 [place] % (Auto) 7.4 % (0.0-10.0) 08/09/18 07:16 Eos % (Auto) 3.3 % (0.0-4.0) 08/09/18 07:16 Baso % (Auto) 1.1 % (0.0-2.0) 08/09/18 07:16 Neut # (Auto) 2.5 K/uL (1.8-7.0) 08/09/18 07:16 Lymph # (Auto) 1.0 K/uL (1.0-4.3) 08/09/18 07:16 [place] # (Auto) 0.3 K/uL (0.0-0.8) 08/09/18 07:16 Eos # (Auto) 0.1 K/uL (0.0-0.7) 08/09/18 07:16 Baso # (Auto) 0.0 K/uL (0.0-0.2) 08/09/18 07:16 PT 11.3 SECONDS (9.7-12.2) 08/09/18 11:38 INR 1.0 08/09/18 11:38 Sodium 137 mmol/L (132-148) 08/09/18 07:16 Potassium 3.9 mmol/L (3.6-5.2) 08/09/18 07:16 Chloride 104 mmol/L (98-107) 08/09/18 07:16 Carbon Dioxide 27 mmol/L (22-30) 08/09/18 07:16 Anion Gap 9 (10-20) L 08/09/18 07:16 BUN 11 mg/dL (9-20) 08/09/18 07:16 Creatinine 0.8 mg/dL (0.8-1.5) 08/09/18 07:16 Est GFR ( Amer) > 60 08/09/18 07:16 Est GFR (Non-Af Amer) > 60 08/09/18 07:16 POC Glucose (mg/dL) 166 mg/dL (65-110) H 08/09/18 16:12 Random Glucose 98 mg/dL (75-110) 08/09/18 07:16 Calcium 9.0 mg/dl (8.6-10.4) 08/09/18 07:16 Phosphorus 3.1 mg/dL (2.5-4.5) 08/09/18 07:16 Magnesium 2.0 mg/dL (1.6-2.3) 08/09/18 07:16 Total Bilirubin 0.7 mg/dL (0.2-1.3) 08/09/18 07:16 AST 23 U/L (17-59) 08/09/18 07:16 ALT 30 U/L (21-72) 08/09/18 07:16 Alkaline Phosphatase 50 U/L (38-126) 08/09/18 07:16 Total Protein 6.2 g/dL (6.3-8.3) L 08/09/18 07:16 Albumin 3.8 g/dL (3.5-5.0) 08/09/18 07:16 Globulin 2.3 gm/dL (2.2-3.9) 08/09/18 07:16 Albumin/Globulin Ratio 1.6 (1.0-2.1) 08/09/18 07:16 Blood Type A POSITIVE 08/08/18 16:43 Antibody Screen Negative 08/08/18 16:43 - Hospital Course Hospital Course: On admission: HPI: Patient is a 58 year old male with history of COPD, HTN, hiatal hernia who presents for 3 day history of bloody vomiting associated with right to mid abdominal pain. He states he woke up on Tuesday morning, felt nauseated and began to vomiting blood. He states he had 4 episodes of bloody vomiting in the morning. He then developed bloody vomiting x5 yesterday morning described as dark red bloody material, after which he sought medical attention and came in to the ED. He states he left against medical advice because he was not ready to stay. He states he woke up again this morning with 3 to 4 episodes of bloody vomiting associated with right to mid abdominal pain. He describes his pain as constant pain that feels like heartburn. He last ate soup at 7pm yesterday. He admits to using Ibuprofen for his chronic back pain, but stopped about 1 month ago. Last drank alcohol 4 days ago, drank 2 beers at that time. He states he has had a similar episode when he was 17 years old, after which he took Mylanta. He admits to feeling some chills, slight headache, lightheadedness. He also admits to having difficulty extending his left 3rd digit. He denies chest pain, shortness of breath, palpitations. He denies urinary symptoms, leg pain. Hospital course: Patient was admitted for hematemesis. GI Dr. Larson was consulted, who performed EGD on patient which revealed 2cm hiatal hernia, reflux esophagitis, gastritis. Patient did not have any episodes of bloody vomiting during hospitalization. He was treated with fluids, Protonix, Zofran. Patient did not require transfusion with hemoglobin levels in 14s. Prior to leaving against medical advice, patient had no episodes of hematemesis. Discharge instructions: Patient left against medical advice. Patient was advised of risks of leaving against medical advice including syncope, uncontrolled bleeding, recurrent GI bleeding, and . Discharge Exam - Head Exam Head Exam: ATRAUMATIC, NORMOCEPHALIC - Eye Exam Eye Exam: EOMI, PERRL - ENT Exam ENT Exam: Mucous Membranes Moist - Neck Exam Neck exam: Full Rom - Respiratory Exam Respiratory Exam: Clear to PA & Lateral, NORMAL BREATHING PATTERN. absent: Rales, Rhonchi, Wheezes, Respiratory Distress, Stridor - Cardiovascular Exam Cardiovascular Exam: REGULAR RHYTHM, +S1, +S2. absent: Gallop, Rubs, Systolic Murmur - GI/Abdominal Exam GI & Abdominal Exam: Normal Bowel Sounds, Soft. absent: Tenderness - Extremities Exam Extremities exam: pedal pulses present - Back Exam Back exam: absent: CVA tenderness (L), CVA tenderness (R) - Neurological Exam Neurological exam: Alert, CN II-XII Intact, Oriented x3 - Psychiatric Exam Psychiatric exam: Normal Affect, Normal Mood - Skin Skin Exam: Dry, Intact, Warm Discharge Plan - Follow Up Plan Condition: STABLE Disposition: AGAINST MEDICAL ADVICE Instructions: Smoking: Not Just Harmful to Your Lungs and Heart, Gastrointestinal Bleeding (DC), Quitting Smoking Referrals: Kingston Larson MD [Staff Provider] - <Braeden Aguila - Last Filed: 08/09/18 19:13> Provider - Provider Date of Admission: 08/08/18 12:00 Attending physician: Sudarshan Smith MD Consults: 08/08/18 14:08 Physician Consult Routine Comment: Consulting Provider: Kingston Larson Consulting Physician: Kingston Larson Reason for Consult: hematemesis Hospital Course - Lab Results Lab Results: Most Recent Lab Values WBC 4.0 K/uL (4.8-10.8) L 08/09/18 07:16 RBC 4.62 Mil/uL (4.40-5.90) 08/09/18 07:16 Hgb 14.4 g/dL (12.0-18.0) 08/09/18 07:16 Hct 43.1 % (35.0-51.0) 08/09/18 07:16 MCV 93.3 fL (80.0-94.0) 08/09/18 07:16 MCH 31.1 pg (27.0-31.0) H 08/09/18 07:16 MCHC 33.3 g/dL (33.0-37.0) 08/09/18 07:16 RDW 13.3 % (11.5-14.5) 08/09/18 07:16 Plt Count 180 K/uL (130-400) 08/09/18 07:16 MPV 9.0 fL (7.2-11.7) 08/09/18 07:16 Neut % (Auto) 63.8 % (50.0-75.0) 08/09/18 07:16 Lymph % (Auto) 24.4 % (20.0-40.0) 08/09/18 07:16 [place] % (Auto) 7.4 % (0.0-10.0) 08/09/18 07:16 Eos % (Auto) 3.3 % (0.0-4.0) 08/09/18 07:16 Baso % (Auto) 1.1 % (0.0-2.0) 08/09/18 07:16 Neut # (Auto) 2.5 K/uL (1.8-7.0) 08/09/18 07:16 Lymph # (Auto) 1.0 K/uL (1.0-4.3) 08/09/18 07:16 [place] # (Auto) 0.3 K/uL (0.0-0.8) 08/09/18 07:16 Eos # (Auto) 0.1 K/uL (0.0-0.7) 08/09/18 07:16 Baso # (Auto) 0.0 K/uL (0.0-0.2) 08/09/18 07:16 PT 11.3 SECONDS (9.7-12.2) 08/09/18 11:38 INR 1.0 08/09/18 11:38 Sodium 137 mmol/L (132-148) 08/09/18 07:16 Potassium 3.9 mmol/L (3.6-5.2) 08/09/18 07:16 Chloride 104 mmol/L (98-107) 08/09/18 07:16 Carbon Dioxide 27 mmol/L (22-30) 08/09/18 07:16 Anion Gap 9 (10-20) L 08/09/18 07:16 BUN 11 mg/dL (9-20) 08/09/18 07:16 Creatinine 0.8 mg/dL (0.8-1.5) 08/09/18 07:16 Est GFR ( Amer) > 60 08/09/18 07:16 Est GFR (Non-Af Amer) > 60 08/09/18 07:16 POC Glucose (mg/dL) 166 mg/dL (65-110) H 08/09/18 16:12 Random Glucose 98 mg/dL (75-110) 08/09/18 07:16 Calcium 9.0 mg/dl (8.6-10.4) 08/09/18 07:16 Phosphorus 3.1 mg/dL (2.5-4.5) 08/09/18 07:16 Magnesium 2.0 mg/dL (1.6-2.3) 08/09/18 07:16 Total Bilirubin 0.7 mg/dL (0.2-1.3) 08/09/18 07:16 AST 23 U/L (17-59) 08/09/18 07:16 ALT 30 U/L (21-72) 08/09/18 07:16 Alkaline Phosphatase 50 U/L (38-126) 08/09/18 07:16 Total Protein 6.2 g/dL (6.3-8.3) L 08/09/18 07:16 Albumin 3.8 g/dL (3.5-5.0) 08/09/18 07:16 Globulin 2.3 gm/dL (2.2-3.9) 08/09/18 07:16 Albumin/Globulin Ratio 1.6 (1.0-2.1) 08/09/18 07:16 Blood Type A POSITIVE 08/08/18 16:43 Antibody Screen Negative 08/08/18 16:43 Attending/Attestation - Attestation I have personally seen and examined this patient.: Yes I have fully participated in the care of the patient.: Yes I have reviewed all pertinent clinical information, including history, physical exam and plan: Yes Notes (Text): 08/09/18 19:12 Patient was seen and examined at 8:45 AM Care of this patient was gone over with resident Dr. Yanes during rounds and again when I was informed that patient wanted to sign AMA. Braeden Aguila D.O.
[2018-08-10] MEDS ORDERED: Influenza Vaccine 60 mcg/0.5 mL SYR (4YR UP) IM ONE (10:00)
== END 2018-08-09 16:55 | disposition left against medical advice (07) ==
LOC: C.ER 10:35 → C.5S 12:00
PROVIDERS: ADMIT Internal Medicine; ATTEND Internal Medicine
DX: K92.0 Hematemesis (principal); K44.9 Diaphragmatic hernia without obstruction or gangrene; K21.0 Gastro-esophageal reflux disease with esophagitis; K29.60 Other gastritis without bleeding; R63.4 Abnormal weight loss; I10 Essential (primary) hypertension; J44.9 Chronic obstructive pulmonary disease, unspecified; F17.210 Nicotine dependence, cigarettes, uncomplicated; Z80.0 Family history of malignant neoplasm of digestive organs
CPT/HCPCS: 36415; 43239; 80053; 82948; 83735; 84100; 85025; 85027; 85610; 86850; 86900; 88305; 96374; 99285; C9113; G0378; J2405; J7030; J7120